=== PATIENT | male | born 1990 | race Caucasian/White ===

== ENCOUNTER 2025-04-28 07:56 | Inpatient (IN) | payer SELFPAY ==
[2025-04-28] MEDS ORDERED: Magnesium 2 GM/50 ML BAG (IN WATER) ONE (08:51)
[2025-04-28 09:05] LABS: #Basophils 0.07 10x3/uL (0.0-0.2); #Eosinophils 0.08 10x3/uL (0.0-0.7); #Monocytes 0.68 10x3/uL (0.11-0.59); #Neutrophils 9.72 10x3/uL (1.40-6.50); %Basophils 0.6 % (0.0-1.0); %Eosinophils 0.6 % (0.0-10.0); %Lymphocytes 15.9 % (21.0-51.0); %Monocytes 5.4 % (0.0-10.0); %Neutrophils 76.9 % (42.0-75.0); Hematocrit 45.7 % (42.0-52.0); Hemoglobin 15.2 g/dL (14.0-18.0); Mean Corpuscular Hemoglobin 28.5 pg (27.0-31.0); Mean Corpuscular Volume 85.6 fL (78.0-98.0); Platelet Count 313 10x3/uL (130-400); Red Blood Cell (RBC) Count 5.34 mill/uL (4.70-6.10); White Blood Cell (WBC) Count 12.63 10x3/uL (4.8-10.8)
[2025-04-28 09:18] LABS: Lipase 24 U/L (8-78)
[2025-04-28 09:20] LABS: ALT (SGPT) 32 U/L (Less than 45); AST (SGOT) 29 U/L (11-34); Albumin 4.5 g/dL (3.1-4.5); Alkaline Phosphatase 56 U/L (40-110); Anion Gap 15 mmol/L (10-20); BUN (Urea Nitrogen) 15 mg/dL (8.9-20.6); Bilirubin, Total 0.7 mg/dL (0.3-1.2); CK (CPK) 69 U/L (30-200); Calc. Creatinine Clearance 0 mL/min (70-130); Calcium 10.1 mg/dL (7.8-10.44); Carbon Dioxide 26 mmol/L (22-29); Chloride 100 mmol/L (98-107); Globulin 3.8 g/dL (2.4-3.5); Glucose 161 mg/dL (70-105); Potassium 3.7 mmol/L (3.5-5.1); Sodium 137 mmol/L (136-145)
[2025-04-28 09:21] LABS: Acetaminophen Less than 10 mcg/mL (Less than 10); Salicylate Less than 8.0 mg/dL (Less than 8.0)
[2025-04-28] MEDS ORDERED: Guaifenesin DM 100-10/5 ML UDCUP PO PRN (10:31)
[2025-04-28] MEDS ORDERED: Acetaminophen 325 MG TAB PO PRN (10:31)
[2025-04-28] MEDS ORDERED: Melatonin 3 MG TAB PO PRN (10:31)
[2025-04-28] MEDS ORDERED: Ondansetron PF 4 MG/2 ML Vial IVP PRN (10:31)
[2025-04-28] MEDS ORDERED: Electrolyte Replacement Protocol 1 EACH FS SCH (10:45)
[2025-04-28 11:03] LABS: Magnesium 2.0 mg/dL (1.6-2.6)
[2025-04-28] MEDS: PNEUMOC 20-VAL CONJ-DIP CRM/PF 0.5 ML SYRINGE IM ONE (14:50)
[2025-04-28 17:27] LABS: Cocaine Metabolite Screen Negative (Negative); THC/Cannabinoid Screen Negative (Negative); Tricyclic Screen Negative (Negative)
[2025-04-29 05:11] LABS: #Basophils 0.05 10x3/uL (0.0-0.2); #Eosinophils 0.10 10x3/uL (0.0-0.7); #Monocytes 1.10 10x3/uL (0.11-0.59); #Neutrophils 10.82 10x3/uL (1.40-6.50); %Basophils 0.3 % (0.0-1.0); %Eosinophils 0.7 % (0.0-10.0); %Lymphocytes 16.0 % (21.0-51.0); %Monocytes 7.6 % (0.0-10.0); %Neutrophils 74.8 % (42.0-75.0); Hematocrit 42.3 % (42.0-52.0); Hemoglobin 14.1 g/dL (14.0-18.0); Mean Corpuscular Hemoglobin 28.4 pg (27.0-31.0); Mean Corpuscular Volume 85.3 fL (78.0-98.0); Platelet Count 292 10x3/uL (130-400); Red Blood Cell (RBC) Count 4.96 mill/uL (4.70-6.10); White Blood Cell (WBC) Count 14.46 10x3/uL (4.8-10.8)
[2025-04-29 05:31] LABS: ALT (SGPT) 29 U/L (Less than 45); AST (SGOT) 24 U/L (11-34); Albumin 4.3 g/dL (3.1-4.5); Alkaline Phosphatase 52 U/L (40-110); Anion Gap 12 mmol/L (10-20); BUN (Urea Nitrogen) 14 mg/dL (8.9-20.6); Bilirubin, Total 0.7 mg/dL (0.3-1.2); Calc. Creatinine Clearance 15 mL/min (70-130); Calcium 9.3 mg/dL (7.8-10.44); Carbon Dioxide 26 mmol/L (22-29); Chloride 106 mmol/L (98-107); Globulin 3.0 g/dL (2.4-3.5); Glucose 105 mg/dL (70-105); Magnesium 2.4 mg/dL (1.6-2.6); Potassium 3.8 mmol/L (3.5-5.1); Sodium 140 mmol/L (136-145)
[2025-04-29] MEDS: Folic Acid 1 MG TAB PO SCH (07:20)
[2025-04-29] MEDS: Multivit, Therapeutic 1 TAB PO SCH (07:20)
[2025-04-30 06:18] LABS: #Basophils 0.04 10x3/uL (0.0-0.2); #Eosinophils 0.14 10x3/uL (0.0-0.7); #Monocytes 0.98 10x3/uL (0.11-0.59); #Neutrophils 9.96 10x3/uL (1.40-6.50); %Basophils 0.3 % (0.0-1.0); %Eosinophils 1.1 % (0.0-10.0); %Lymphocytes 14.3 % (21.0-51.0); %Monocytes 7.5 % (0.0-10.0); %Neutrophils 76.3 % (42.0-75.0); Hematocrit 37.5 % (42.0-52.0); Hemoglobin 12.4 g/dL (14.0-18.0); Mean Corpuscular Hemoglobin 28.7 pg (27.0-31.0); Mean Corpuscular Volume 86.8 fL (78.0-98.0); Platelet Count 236 10x3/uL (130-400); Red Blood Cell (RBC) Count 4.32 mill/uL (4.70-6.10); White Blood Cell (WBC) Count 13.05 10x3/uL (4.8-10.8)
[2025-04-30 06:53] LABS: ALT (SGPT) 29 U/L (Less than 45); AST (SGOT) 23 U/L (11-34); Albumin 3.4 g/dL (3.1-4.5); Alkaline Phosphatase 45 U/L (40-110); Anion Gap 13 mmol/L (10-20); BUN (Urea Nitrogen) 15 mg/dL (8.9-20.6); Bilirubin, Total 0.5 mg/dL (0.3-1.2); Calc. Creatinine Clearance 185 mL/min (70-130); Calcium 8.8 mg/dL (7.8-10.44); Carbon Dioxide 24 mmol/L (22-29); Chloride 107 mmol/L (98-107); Globulin 2.8 g/dL (2.4-3.5); Glucose 104 mg/dL (70-105); Potassium 3.9 mmol/L (3.5-5.1); Sodium 140 mmol/L (136-145)
[2025-04-30 07:45] LABS: Free T4 (Free Thyroxine) 1.11 ng/dL (0.70-1.48)
[2025-04-30 14:13] VITALS: BMI 30.3
[2025-05-01 04:55] LABS: #Basophils 0.05 10x3/uL (0.0-0.2); #Eosinophils 0.18 10x3/uL (0.0-0.7); #Monocytes 1.04 10x3/uL (0.11-0.59); #Neutrophils 7.11 10x3/uL (1.40-6.50); %Basophils 0.4 % (0.0-1.0); %Eosinophils 1.5 % (0.0-10.0); %Lymphocytes 29.6 % (21.0-51.0); %Monocytes 8.7 % (0.0-10.0); %Neutrophils 59.4 % (42.0-75.0); Hematocrit 39.1 % (42.0-52.0); Hemoglobin 13.2 g/dL (14.0-18.0); Mean Corpuscular Hemoglobin 28.7 pg (27.0-31.0); Mean Corpuscular Volume 85.0 fL (78.0-98.0); Platelet Count 276 10x3/uL (130-400); Red Blood Cell (RBC) Count 4.60 mill/uL (4.70-6.10); White Blood Cell (WBC) Count 11.97 10x3/uL (4.8-10.8)
[2025-05-01 05:48] LABS: ALT (SGPT) 28 U/L (Less than 45); AST (SGOT) 22 U/L (11-34); Albumin 3.7 g/dL (3.1-4.5); Alkaline Phosphatase 51 U/L (40-110); Anion Gap 13 mmol/L (10-20); BUN (Urea Nitrogen) 11 mg/dL (8.9-20.6); Bilirubin, Total 0.4 mg/dL (0.3-1.2); Calc. Creatinine Clearance 181 mL/min (70-130); Calcium 8.6 mg/dL (7.8-10.44); Carbon Dioxide 24 mmol/L (22-29); Chloride 106 mmol/L (98-107); Globulin 2.8 g/dL (2.4-3.5); Glucose 97 mg/dL (70-105); Potassium 3.1 mmol/L (3.5-5.1); Sodium 140 mmol/L (136-145)
[2025-05-01] MEDS ORDERED: Thiamine 100 MG TAB PO SCH (10:45)
[2025-05-01 14:56] VITALS: BP 127/72; TEMP 97.6
== END 2025-05-01 15:09 | disposition home or self-care (01) | DRG 896 ==
LOC: ERS 07:56 → ERHOLD 10:05 → IMCU/EMU 13:55 → CCU 04-29 09:45 → T4-A 05-01 11:10
PROVIDERS: ADMIT Internal Medicine; ATTEND Hospitalist
PROC: HZ2ZZZZ Detoxification Services for Substance Abuse Treatment (ICD-10-PCS; principal; 2025-04-28)
DX: F13.939 Sedative, hypnotic or anxiolytic use, unspecified with withdrawal, unspecified (principal); G93.41 Metabolic encephalopathy
CPT/HCPCS: 36415; 71045; 80053; 80306; 80307; 82140; 82550; 83605; 83690; 83735; 84100; 84439; 84443; 84481; 85025; 93005; 96365; 96366; 96375; J2060; J3411; J3475; J7120